=== PATIENT | female | born 1970 | race Caucasian/White ===

== ENCOUNTER 2016-09-02 21:19 | Emergency (ER) | payer OTHER ==
[~2016-09-02 21:19] MED LIST: AGGRENOX1 CAP PO; ASPIRIN EC LOW81 MG PO; ASPIRIN325 MG PO; BIRTH CONTROL PILL; CLONAZEPAM0.5 MG PO; CYMBALTA30 MG; CYMBALTA60 MG; DARVOCET-N 1001 TAB PO; EFFEXOR75 MG PO; ENTERIC ASPIRIN81 MG PO; ESCITALOPRAM OX10 M1 PO; EXCEDRIN EXTRA1 EAC2 PO; FORTAMET1000 MG PO; GEMFIBROZIL600 MG; HCTZ; HYDROCHLOROTH12.5 MG PO; LISINOPRIL-HCTZ PO; LISINOPRIL10 MG; LISINOPRIL20 MG PO; MACROBID 100 M100 M1 PO; METFORMIN HCL500 MG PO; NORCO 5/325 TAB1 TAB PO; PLAVIX75 MG PO; PRAVACHOL20 MG PO; PRINIVIL20 MG PO; PROSTATIN; SKELAXIN800 MG PO; TOPAMAX50 MG; TRAZODONE50 MG; TRAZODONE50 MG PO; VENTOLIN HFA8 GM IH; WELLBUTRIN SR150 MG; XENICAL120 MG PO; ZESTORETIC 20/11 TAB PO; ZITHROMAX250 MG PO; [UNRECOGNIZED DRUG - OTHER] PO
[2016-09-02] MEDS ORDERED: PLAVIX75 M1 PO ×2 (21:48→23:33)
[2016-09-02] MEDS ORDERED: LISINOPRIL-HCT1 EAC1 PO (21:49)
[2016-09-02] MEDS ORDERED: PRAVACHOL20 M1 GT (21:49)
[2016-09-02 22:51] LABS: BASO % 0.2 % (0-2); EOS % 2.3 % (0-7); EOSINOPHIL ABSOLUTE COUNT 0.2 tho/cmm (0.0-0.7); HCT-HEMATOCRIT 37.4 % (34.0-49.0); HGB-HEMOGLOBIN 12.8 gm/dl (12.0-15.5); IMMATURE GRANULOCYTES ABSOLUTE 0.02 tho/cmm (0-0.03); IMMATURE GRANULOCYTES PERCENT 0.2 % (0-0.3); LYMPH % 37.2 % (20-45); LYMPH ABSOLUTE COUNT 3.2 tho/cmm (0.8-4.5); MCH (MEAN CORPUSCULAR HGB) 29.6 pg (28.0-32.0); MCHC MEAN CORPUSCULAR HGB CONC 34.2 % (32.0-36.0); MCV (MEAN CELL VOLUME) 86.6 fl (82.0-96.0); MEAN PLATELET VOLUME 9.4 cmc (9.4-12.4); MONO % 8.2 % (0-12); MONOCYTE ABSOLUTE COUNT 0.7 tho/cmm (0.0-1.2); NEUTROPHIL ABSOLUTE COUNT 4.5 tho/cmm (1.6-8.0); NEUTROPHIL-AUTOMATED 4.5 tho/cmm (1.6-8.0); NEUTROPHILS % 51.9 % (40-80); PLATELET COUNT 296 tho/cmm (150-450); RED BLOOD COUNT 4.32 mil/cmm (4.00-5.20); RED CELL DISTRIBUTION WIDTH 12.8 % (12.4-16.4); WHITE BLOOD COUNT 8.6 tho/cmm (4.0-10.0)
[2016-09-02 22:58] LABS: URINE APPEARANCE HAZY; URINE BILIRUBIN NEGATIVE (NEG); URINE BLOOD SMALL (NEG); URINE COLOR YELLOW; URINE GLUCOSE (UA) NEGATIVE (NEG); URINE KETONE NEGATIVE (NEG); URINE LEUKOCYTE ESTERASE POSITIVE (NEG); URINE NITRITE NEGATIVE (NEG); URINE PROTEIN NEGATIVE (NEG)
[2016-09-02 23:06] LABS: ALB/GLOB RATIO 0.9 (0.8-2.0); ALBUMIN 3.4 g/dl (3.5-5.0); ALKALINE PHOSPHATASE 67 U/L (33-138); ALT/SGPT 26 U/L (12-78); ANION GAP 11 mmol/L (0-20); AST/SGOT 17 U/L (10-40); BILIRUBIN,TOTAL 0.2 mg/dl (0-1.5); BLOOD UREA NITROGEN 19 mg/dl (6-24); CALCIUM 8.6 mg/dl (8.5-10.5); CARBON DIOXIDE-VENOUS 26 mmol/L (22-32); CHLORIDE 107 mmol/l (96-110); CREATININE 0.78 mg/dl (0.50-1.10); GLUCOSE 119 mg/dL (70-110); POTASSIUM 3.6 mmol/L (3.7-5.1); SODIUM 140 mmol/L (135-145); eGFR VALUE FOR BLACK >90 mL/Min
[2016-09-02 23:16] LABS: URINE AMORPHOUS 1+; URINE EPITHELIAL CELLS 0-1 /[HPF] (0-10); URINE RBC RARE /[HPF] (0-5)
[2016-09-02] MEDS ORDERED: GLUCOPHAGE1000 M1 PO (23:33)
[2016-09-02] MEDS ORDERED: PRAVACHOL20 M1 PO (23:33)
[2016-09-02] MEDS ORDERED: MICROZIDE12.5 M1 PO (23:33)
== END 2016-09-02 23:46 ==
LOC: EDMED 21:19
PROVIDERS: Emergency Medicine
DX: R60.0 Localized edema (principal); E11.9 Type 2 diabetes mellitus without complications; I10 Essential (primary) hypertension; E78.5 Hyperlipidemia, unspecified; F32.9 Major depressive disorder, single episode, unspecified; F41.9 Anxiety disorder, unspecified